=== PATIENT | female | born 1935 | race Caucasian/White ===

== ENCOUNTER 2016-11-02 11:10 | Inpatient (IN) | payer MEDICARE ==
--- NOTE | ~2016-11-02 | EGD ---
EGD REPORT [facility] [address] [address] NAME: GISELL SAENZ : 39 STATUS : ADM IN PAT#: [id number] AGE: 81 ADM/REG DATE : 11/02/16 MR#: [id number] REPORT SERV DATE: 11/03/16 DICTATED BY: JACKSON MCCRAY DATE: 11/03/16 REPORT STATUS : Draft TRANSCRIBED BY: [facility] DATE: 11/03/16 Endoscopy Center Patient Name: Gisell Saenz Date of : 1935 Attending MD: JACKSON MCCRAY MD Procedure Date No Time: 11/03/2016 Procedure: Upper GI endoscopy Indications: Hematochezia, Melena Referring MD: CRISTIANA CRAIN Medicines: Monitored Anesthesia Care Complications: No immediate complications. Estimated blood loss: None. Procedure: Pre-Anesthesia Assessment: - ASA Grade Assessment: III - A patient with severe systemic disease. After obtaining informed consent, the endoscope was passed under direct vision. Throughout the procedure, the patient's blood pressure, pulse, and oxygen saturations were monitored continuously. The GIF [id number] was introduced through the mouth, and advanced to the second part of duodenum. The upper GI endoscopy was accomplished without difficulty. The patient tolerated the procedure well. Findings: The examined esophagus was normal. The stomach was normal. The examined duodenum was normal. The cardia and gastric fundus were normal on retroflexion. Impression: - Normal examination with no suggestion of GI bleeding. Recommendation: - Perform a colonoscopy today. Procedure Code(s): --- Professional --- 29798, Esophagogastroduodenoscopy, flexible, transoral; diagnostic, including collection of specimen(s) by brushing or washing, when performed (separate procedure) Diagnosis Code(s): --- Professional --- K92.1, Melena CPT copyright 2013 [employer]. All rights reserved. The codes documented in this report are preliminary and upon head filter tank tender helper review may EGD REPORT [facility] [address] [place]. [address] NAME: GISELL SAENZ : [birth year] STATUS : ADM IN [facility]#: [id number] AGE: 81 ADM/REG DATE : 11/02/16 MR#: [id number] REPORT SERV DATE: 11/03/16 DICTATED BY: JACKSON MCCRAY DATE: 11/03/16 REPORT STATUS : Draft TRANSCRIBED BY: [employer] DATE: 11/03/16 be revised to meet current compliance requirements. Jackson Mccray MD JACKSON MCCRAY MD 11/03/2016 7:56 AM This report has been signed electronically. Number of Addenda: 0 Note Initiated On: 11/03/2016 7:13 AM Scope Withdrawal Time 0 hours 0 minutes 0 seconds [address] [place] [address]
--- NOTE | ~2016-11-02 | HP ---
History And Physical [id number] [facility] [place]. [address] NAME: GISELL SAENZ : [birth year] STATUS : ADM IN [facility]#: [id number] AGE: 81 ADM/REG DATE : 11/02/16 MR#: [id number] REPORT SERV DATE: 11/02/16 DICTATED BY: WES BONILLA DATE: 11/02/16 REPORT STATUS : Draft TRANSCRIBED BY: MODLucina DATE: 11/02/16 DATE OF ADMISSION: 11/02/2016 CHIEF COMPLAINT: Bleeding per rectum. HISTORY OF PRESENT ILLNESS: This is a 81-year-old female with medical history of hypertension, who presented to the emergency room with complaints of bright red blood per rectum. The patient reports that she was in her usual state of health until about a week ago when she noticed some black stool. She normally has about three bowel movements a day, but reports that in the last 24 hours, developed some abdominal pain and nausea. She went to the bathroom and had three bloody bowel movements in the last 24 hours. It was noted to be bright red blood. She denies any chronic history of NSAID use; however, the patient takes a Neptali Aspirin 81 mg a day. She denies any recent use of Goody's powders. She denies any weight loss, jaundice, or alcohol use. Of note, the patient reported that five years ago she had an EGD and a colonoscopy performed by Dr. Nails and was noted to have some chronic gastritis with possible ulcers (per verbal report). She denies any history of perforated ulcers. She reports that she is scheduled to have a followup colonoscopy with Dr. Nails this year. The patient denies any bleeding from any other orifices, hematemesis, or hematuria. She endorsed history of associated presyncope, lightheadedness, fatigue, but denies any palpitation. No chest pain, no shortness of breath, and no history of loss of consciousness. On presentation to the emergency room, blood pressure was 138/78, heart rate was 71. CT of the abdomen was obtained that showed acute colitis. The Hospitalist Service was consulted to admit the patient for further management. REVIEW OF SYSTEMS: 12-point review of systems performed, positive findings as per HPI. PAST MEDICAL HISTORY: 1. Hypertension. 2. Coronary artery disease. 3. Mild diastolic dysfunction per echocardiogram done in 2011. PAST SURGICAL HISTORY: 1. History of left heart catheterization six months ago and found to have known occlusive multivessel coronary artery disease. No stent was placed. 2. Hysterectomy. 3. Recent history of root canal therapy with bridging and was placed on amoxicillin prior to this admission. FAMILY HISTORY: Denies family history of colon cancer. Reports history of hypertension. History And Physical [address] [address] NAME: GISELL SAENZ : 39 STATUS : ADM IN [facility]#: [id number] AGE: 81 ADM/REG DATE : 11/02/16 MR#: [id number] REPORT SERV DATE: 11/02/16 DICTATED BY: WES BONILLA DATE: 11/02/16 REPORT STATUS : Draft TRANSCRIBED BY: ATILIO DATE: 11/02/16 SOCIAL HISTORY: Denies drinking alcohol, tobacco use, or illicit drug use. MEDICATIONS: 1. Benazepril and hydrochlorothiazide 20/25 tab one p.o. daily. 2. Doxazosin 2 mg p.o. daily. 3. Omeprazole 20 mg p.o. daily. 4. Atenolol 50 mg p.o. daily. 5. Potassium chloride 10 mEq p.o. daily. 6. Norvasc 2.5 mg p.o. daily. 7. Zolpidem 5 mg p.o. daily. 8. Multivitamins one tab p.o. daily. 9. Aspirin enteric-coated 81 mg p.o. daily. 10.Amoxicillin 500 mg p.o. b.i.d. for seven days. 11.[place] 5/325 one p.o. daily. PHYSICAL EXAMINATION: VITAL SIGNS: Blood pressure 138/78, pulse 71 beats per minute, respiratory rate 18 cycles per minute, saturating 99% on room air. GENERAL: Not in any acute distress. HEENT: Pupils equal, round, and reactive. Extraocular muscle intact. Not pale. Anicteric. Oral mucosa moist. NECK: Supple. No JVD. No thyromegaly. CHEST: Equal expansion, nontender. LUNGS: Clear to auscultation bilaterally. No wheezes, no rhonchi. CARDIOVASCULAR: Regular rate and rhythm. S1 and S2. No murmurs, no rubs, no gallop. ABDOMEN: Bowel sounds normoactive. Mild diffuse tenderness, most severe in the left lower quadrant. No palpably enlarged organomegaly. EXTREMITIES: No pedal edema. NEURO: Oriented x3. Strength 5/5 in all extremities. LABORATORY DATA: CBC: WBC 10.9, hemoglobin 13.9, hematocrit 41.0, platelets 191. INR 1.1, PT 13.3. Lipase 77. Chemistry: Sodium 138, potassium 3.1, chloride 99, bicarb 34, BUN 16, creatinine 1.04, GFR 51, glucose 129, ALT 23, AST 25, alkaline phosphatase 62, total bilirubin 1.0. CT abdomen and pelvis, impression: 1. Nonspecific acute colitis in the mid transverse colon through the descending colon with sparing of the rectosigmoid. 2. Mild rights-sided pelvocaliectasis, potentially due to mild UPJ obstruction based on the course of the proximal right ureter. 3. Small hiatal hernia. 4. Sigmoid and left-sided colonic diverticulosis without diverticulitis. ASSESSMENT AND PLAN: 1. GI bleed, likely due to diverticulosis. There is also a possibility of ongoing upper GI bleed in this patient, who has a week of melena prior to presentation. 2. Hypokalemia. History And Physical [address] [address] NAME: GISELL SAENZ : 39 STATUS : ADM IN [facility]#: [id number] AGE: 81 ADM/REG DATE : 11/02/16 MR#: [id number] REPORT SERV DATE: 11/02/16 DICTATED BY: WES BONILLA DATE: 11/02/16 REPORT STATUS : Draft TRANSCRIBED BY: ATILIO DATE: 11/02/16 3. Acute colitis. 4. Hypertension. PLAN: 1. Acute GI bleed: I will keep the patient n.p.o. at this time. We will start the patient on IV Flagyl and IV levofloxacin. We will group and cross-match two units of packed red blood cells. We will monitor the patient's H and H. We will check serial H and H. We will transfuse one unit of packed RBC if hemoglobin less than 7 and hematocrit less than 21. I will obtain vitals q.4 hours. We will continue IV Protonix at this time. I will consult the patient's primary bakery decorator, Dr. Nails for further recommendation. 2. Hypokalemia: We will replete the patient's potassium. 3. Acute colitis: We will continue IV Flagyl and levofloxacin at this time. We will continue to monitor closely. We will continue some IV fluid resuscitation as well. 4. Hypertension: We will hold off the patient's home blood pressure medication at this time and reinstitute as BP tolerates. 5. Code status: Full code. 6. Consultation: GI. 7. Admission disposition: Cardiac tele. 8. Admission status: Inpatient. 9. Deep vein thrombosis prophylaxis: Contraindicated. IOO/MODL Wes Bonilla MD / [id number] CC: MD Leo Valencia MD
--- NOTE | ~2016-11-02 | CN ---
Consultation Report [address] [place]. [address] NAME: GISELL SAENZ : 39 STATUS : ADM IN PAT#: [id number] AGE: 81 ADM/REG DATE : 11/02/16 MR#: [id number] REPORT SERV DATE: 11/02/16 DICTATED BY: DELLA NAILS DATE: 11/02/16 REPORT STATUS : Draft TRANSCRIBED BY: MODL DATE: 11/02/16 CONSULTATION DATE OF CONSULTATION: 11/02/2016 HISTORY OF PRESENT ILLNESS: Gisell Saenz is a 81-year-old female patient, well known to me, whom I was asked to evaluate regarding GI bleed. I saw this patient for a screening colonoscopy and an EGD for dysphagia in 12/2011. She had diverticular disease and hemorrhoids. She had a small hiatal hernia. The patient stated that she began to experience some dark stools consistent with melena for about the last week. Yesterday, she had some lower abdominal pain and then experienced some bright red blood per rectum that brought her to the emergency room. A CT scan in the emergency room shows colitis in the transverse colon, descending colon, diverticular disease, and a hiatal hernia. The patient underwent oral surgery on Thursday and had some vomiting on . She denies use of any nonsteroidal antiinflammatory drugs. She is on amoxicillin currently because of the oral surgery. She does have a history gastroesophageal reflux disease, for which she takes omeprazole. She denies any chest pain or dyspnea. PAST MEDICAL HISTORY: 1. Hypertension. 2. Coronary artery disease. 3. GERD. PAST SURGICAL HISTORY: 1. Left heart catheterization six months ago, requiring no stent but showing some coronary artery disease. 2. Hysterectomy. 3. History of oral surgery this past week. FAMILY HISTORY: No history of colon cancer or polyps. SOCIAL HISTORY: She is . Her is in the room. She does not smoke or drink. OUTPATIENT MEDICATIONS: See list. Of note, she is on omeprazole 20 mg daily and takes aspirin once per day. REVIEW OF SYSTEMS: All system reviewed, negative except for that noted in the history of present illness. PHYSICAL EXAMINATION: Consultation Report [address] [place]. [address] NAME: GISELL SAENZ : 39 STATUS : ADM IN PAT#: [id number] AGE: 81 ADM/REG DATE : 11/02/16 MR#: [id number] REPORT SERV DATE: 11/02/16 DICTATED BY: DELLA NAILS DATE: 11/02/16 REPORT STATUS : Draft TRANSCRIBED BY: ATILIO DATE: 11/02/16 GENERAL: She is oriented x4, in no acute distress. She is afebrile. VITAL SIGNS: Stable. LUNGS: Clear. CARDIOVASCULAR: Revealed no S3, S4, or murmurs. ABDOMEN: Revealed active bowel sounds. Soft. Some mild lower abdominal tenderness. LABORATORY DATA: CMP: Normal except potassium 3.1, glucose 129, white blood cell count 10,900, hemoglobin 12.9, platelet count 91,000. On admission, her hemoglobin was 13.9. IMPRESSION: 1. Melena. 2. Lower abdominal pain. 3. Hematochezia. 4. Colitis. Most of her symptoms in view of the CT scan are consistent with colitis, probably ischemic colitis, though infectious could not be ruled out. I doubt this is diverticulitis. I cannot explain the melena. She could have ulcer in her stomach or elsewhere in the more proximal GI tract. RECOMMENDATIONS: 1. EGD and colonoscopy tomorrow by Dr. Dumas. 2. Serial H and H. 3. Agree with PPI drip. 4. Agree with antibiotics for now. Thanks for allowing us to assist in her care. KYLE/ATILIO Della Nails M.D. / [id number] CC: MD Leo Valencia MD
--- NOTE | ~2016-11-02 | EGD ---
EGD REPORT [facility] [address] [address] NAME: GISELL SAENZ : 39 STATUS : ADM IN PAT#: [id number] AGE: 81 ADM/REG DATE : 11/02/16 MR#: [id number] REPORT SERV DATE: 11/03/16 DICTATED BY: JACKSON MCCRAY DATE: 11/03/16 REPORT STATUS : Draft TRANSCRIBED BY: [facility] DATE: 11/03/16 Endoscopy Center Patient Name: Gisell Saenz Date of : 1935 Attending MD: JACKSON MCCRAY MD Procedure Date No Time: 11/03/2016 Procedure: Colonoscopy Indications: Hematochezia Referring MD: CRISTIANA CRAIN Medicines: Monitored Anesthesia Care Complications: No immediate complications. Estimated blood loss: Minimal. Procedure: Pre-Anesthesia Assessment: - ASA Grade Assessment: III - A patient with severe systemic disease. After I obtained informed consent, the scope was passed under direct vision. Throughout the procedure, the patient's blood pressure, pulse, and oxygen saturations were monitored continuously. The CF [id number] was introduced through the anus and advanced to the terminal ileum, with identification of the appendiceal orifice and IC valve. The colonoscopy was performed without difficulty. The patient tolerated the procedure well. The quality of the bowel preparation was excellent. Findings: The perianal and digital rectal examinations were normal. Pertinent negatives include no palpable rectal lesions. Patchy mild inflammation characterized by congestion (edema), erosions and erythema was found from 40 to 50 cm proximal to the anus. Biopsies were taken with a cold forceps for histology. Estimated blood loss was minimal. Multiple medium-mouthed diverticula were found in the sigmoid colon. The exam was otherwise without abnormality on direct and retroflexion views. Impression: - Patchy mild inflammation was found from 40 to 50 cm proximal to the anus secondary to colitis. Biopsied. - Diverticulosis in the sigmoid colon. - The examination was otherwise normal on direct and retroflexion views. Recommendation: - Return patient to hospital [facility] for ongoing care. - Clear liquid diet and then advance diet as tolerated by symptoms. EGD REPORT [address] [address] NAME: GISELL SAENZ : 39 STATUS : ADM IN [facility]#: [id number] AGE: 81 ADM/REG DATE : 11/02/16 MR#: [id number] REPORT SERV DATE: 11/03/16 DICTATED BY: JACKSON MCCRAY DATE: 11/03/16 REPORT STATUS : Draft TRANSCRIBED BY: [employer] DATE: 11/03/16 - Await pathology results. - Use broad spectrum antibiotics for 7 days. - Return to GI clinic in 2 weeks. Procedure Code(s): --- Professional --- 24246, Colonoscopy, flexible, proximal to splenic flexure; with biopsy, single or multiple Diagnosis Code(s): --- Professional --- K52.9, Noninfective gastroenteritis and colitis, unspecified K57.30, Diverticulosis of large intestine without perforation or abscess without bleeding K92.1, Melena CPT copyright 2013 [employer]. All rights reserved. The codes documented in this report are preliminary and upon jingle writer review may be revised to meet current compliance requirements. Jackson Mccray MD JACKSON MCCRAY MD 11/03/2016 8:24 AM This report has been signed electronically. Number of Addenda: 0 Note Initiated On: 11/03/2016 7:12 AM Scope Withdrawal Time 0 hours 9 minutes 45 seconds [address] [id number]
--- NOTE | ~2016-11-02 | DS ---
Discharge Summary [address] [place]. [address] NAME: GISELL SAENZ : 39 STATUS : DIS IN PAT#: [id number] AGE: 81 ADM/REG DATE : 11/02/16 MR#: [id number] REPORT SERV DATE: 11/04/16 DICTATED BY: WES BONILLA DATE: 11/03/16 REPORT STATUS : Draft TRANSCRIBED BY: MODL DATE: 11/03/16 ADMISSION DATE: 11/02/2016 DISCHARGE DATE: 11/03/2016 DISCHARGE DIAGNOSES: 1. Acute colitis. 2. Hematochezia. 3. Diverticulosis. 4. Hypertension. 5. Hypokalemia. DISCHARGE CONDITION: Stable. IMAGIN. CT of the abdomen, impression:. a. Nonspecific acute colitis in the midtransverse colon through the descending colon with sparing of the rectosigmoid. b. Mild right-sided pelvocaliectasis potentially due to mild UPJ obstruction based on the course of the proximal right ureter. c. Small hiatal hernia. d. Sigmoid and left-sided colonic diverticulosis without diverticulitis. 2. Colonoscopy. Findings, impression:. a. Patchy mild inflammation was found from 40 to 50 cm proximal to the anus secondary to colitis. Biopsied. Diverticulosis in the sigmoid colon noted. b. The rest of the exam was otherwise normal. 3. EGD report. Impression, normal examination with no suggestion of GI bleed. CONSULTATION: Gastroenterology by Dr. Jackson Dumas. HISTORY OF PRESENT ILLNESS: For detailed HPI, make reference to Dr. Wes Bonilla's dictation on 11/02/2016. In brief, this is a 81-year-old female, who presented to the hospital with complaints of melena of one week duration and bright red blood per rectum of 24 hours duration. In the ER, had a CT scan of the abdomen that showed acute colitis. The patient was admitted to the Hospitalist Service. HOSPITAL COURSE: 1. Acute GI bleed. The patient was made n.p.o., placed on Protonix drip. Gastroenterology was consulted. Recommended an EGD and colonoscopy. EGD showed normal examination. Colonoscopy showed the presence of colitis. No source of bleeding identified. The patient was transferred back to the medical floor. Diet was advanced from n.p.o. to clear liquids, from clear liquids to regular diet, and tolerated it without any complication. 2. Acute colitis. The patient was started on IV Flagyl and levofloxacin at the time of admission, which was subsequently transitioned to p.o. Flagyl and levofloxacin prior to discharge. The patient tolerated regular diet without any abdominal discomfort, nausea, or vomiting. The patient was advised to complete a total seven days antibiotic Discharge Summary [address] [address] NAME: GISELL SAENZ : 39 STATUS : DIS IN PAT#: [id number] AGE: 81 ADM/REG DATE : 11/02/16 MR#: [id number] REPORT SERV DATE: 11/04/16 DICTATED BY: WES BONILLA DATE: 11/03/16 REPORT STATUS : Draft TRANSCRIBED BY: ATILIO DATE: 11/03/16 therapy and follow up with gastroenterology as an outpatient. DISCHARGE CONDITION: Stable. DISCHARGE MEDICATIONS: 1. Amlodipine 2.5 mg p.o. daily. 2. Atenolol 50 mg p.o. daily. 3. Levofloxacin 750 mg p.o. daily. 4. Flagyl 500 mg p.o. t.i.d. 5. . 6. Aspirin 81 mg p.o. daily. DISCHARGE FOLLOWUP: Follow up with Gastroenterology. Greater than 35 minutes was used to prepare this patient's discharge, reconcile medication, and advise the patient on discharge plans and followup. DICTATED BY: MD GEOFFREY Valencia/ATILIO Wes Bonilla MD / [id number] CC: MD Leo Valencia MD
[2016-11-02 10:35] LABS: BASOPHILS 0.2 %; BASOPHILS ABSOLUTE 0.02 10/3/uL (0.0-0.16); EOSINOPHILS 0.2 %; EOSINOPHILS ABSOLUTE 0.02 10/3/uL (0.0-0.53); HEMOGLOBIN 13.9 g/dL (12.0-16.0); IMMATURE GRANULOCYTES 0.2 %; IMMATURE GRANULOCYTES ABSOLUTE 0.02 10/3/uL (0.0-0.11); LYMPHOCYTES 14.3 %; LYMPHOCYTES ABSOLUTE 1.56 10/3/uL (0.67-4.30); MEAN CORPUS HGB CONC 33.9 g/dL (32.0-36.0); MEAN CORPUSCULAR HEMOGLOB 30.9 pg (26.0-34.0); MEAN CORPUSCULAR VOLUME 91.1 fL (80-100); MEAN PLATELET VOLUME 9.6 fL (9.2-13.0); MONOCYTES 9.2 %; NEUTROPHILS 75.9 %; NEUTROPHILS ABSOLUTE 8.28 10/3/uL (2.02-8.40); PLATELET COUNT 191 10/3/uL (150-400); RBC DISTRIBUTION WIDTH 12.7 % (12.0-16.0)
[2016-11-02 10:37] LABS: ER CBC TAT 0 Hrs 05 Mins; MANUAL DIFF NO %; WHITE BLOOD CELLS 10.9 10/3/uL (4.5-10.5)
[2016-11-02 10:44] LABS: INTERNATIONAL NORMAL RATI 1.1 UNITS (-); PARTIAL THROMBO TIME 27.5 SEC (22.5-37.2); PROTIME (NOT ORD) 13.8 SEC (12.0-14.5)
[2016-11-02 10:56] LABS: A/G RATIO 1.1 (0.7-1.9); ALBUMIN 3.6 G/DL (3.5-5.0); CALCIUM, SERUM 8.9 MG/DL (8.5-10.4); CHLORIDE, SERUM 99 MMOL/L (96-112); CO2 (CARBON DIOXIDE) 34 MMOL/L (24-34); CREATININE 1.04 MG/DL (0.55-1.02); GFR AFRICAN AMERICAN 59 ML/MIN (>=60); GFR NON AFRICAN AMERICAN 51 ML/MIN (>=60); GLOBULIN 3.4 G/DL (2.5-4.1); POTASSIUM, SERUM 3.1 MMOL/L (3.5-5.3); SGOT(AST) 25 U/L (5-40); SGPT(ALT) 23 U/L (5-65); SODIUM, SERUM 138 MMOL/L (135-148)
[2016-11-02 10:57] LABS: ALKALINE PHOSPHATASE 62 U/L (45-117); BUN (BLOOD UREA NITROGEN) 16 MG/DL (6-23); GLUCOSE, SERUM 129 MG/DL (60-99)
[~2016-11-02 11:10] MED LIST: AMB5 PO; ASAB PO; ATEN50 PO; CALTRA600D PO; CALTRAT600 PO; CARDU4 PO; CENTRUM PO; CENTRUM TAB1 TAB PO; HALF81 PO; HCTZ25B PO; KDUR10 PO; KLOR-CON M2020 MEQ PO; LIDODERM T; LOTENSIN HCT1 TA3 PO; LYRICA75 PO; MIRALAXPKT PO; MOBIC7.5 PO; NORCO1 TA1 PO; NORV25 PO; PRILO PO
[2016-11-02] MEDS ORDERED: ATEN50 PO (11:18)
[2016-11-02] MEDS ORDERED: PRILO PO (11:18)
[2016-11-02] MEDS ORDERED: LOTENSIN HCT1 TA3 PO (11:18)
[2016-11-02] MEDS ORDERED: CARDU2 PO (11:18)
[2016-11-02] MEDS ORDERED: MULTIVITAMI1 PO (11:19)
[2016-11-02] MEDS ORDERED: NORV25 PO (11:19)
[2016-11-02] MEDS ORDERED: AMB5 PO (11:19)
[2016-11-02] MEDS ORDERED: K-TABS10 MEQ PO (11:19)
[2016-11-02] MEDS ORDERED: AMOXIL500 MG PO (11:20)
[2016-11-02] MEDS ORDERED: NORCO1 TA1 PO (11:20)
[2016-11-02] MEDS ORDERED: HALF81 PO (11:20)
[2016-11-02 15:31] LABS: FREE T4 1.15 NG/DL (0.76-1.46)
[2016-11-02 15:47] LABS: HEMOGLOBIN 12.9 g/dL (12.0-16.0)
[2016-11-02 23:38] LABS: HEMATOCRIT 39.9 % (36.0-48.0); HEMOGLOBIN 13.3 g/dL (12.0-16.0)
[2016-11-03 04:37] LABS: BASOPHILS 0.2 %; BASOPHILS ABSOLUTE 0.02 10/3/uL (0.0-0.16); EOSINOPHILS 0.3 %; EOSINOPHILS ABSOLUTE 0.03 10/3/uL (0.0-0.53); HEMATOCRIT 36.2 % (36.0-48.0); HEMOGLOBIN 11.9 g/dL (12.0-16.0); IMMATURE GRANULOCYTES 0.3 %; IMMATURE GRANULOCYTES ABSOLUTE 0.03 10/3/uL (0.0-0.11); LYMPHOCYTES 19.2 %; LYMPHOCYTES ABSOLUTE 2.01 10/3/uL (0.67-4.30); MEAN CORPUS HGB CONC 32.9 g/dL (32.0-36.0); MEAN CORPUSCULAR HEMOGLOB 30.6 pg (26.0-34.0); MEAN CORPUSCULAR VOLUME 93.1 fL (80-100); MEAN PLATELET VOLUME 9.9 fL (9.2-13.0); MONOCYTES 9.4 %; MONOCYTES ABSOLUTE 0.98 10/3/uL (0.21-1.20); NEUTROPHILS 70.6 %; NEUTROPHILS ABSOLUTE 7.39 10/3/uL (2.02-8.40); PLATELET COUNT 170 10/3/uL (150-400); RBC DISTRIBUTION WIDTH 12.9 % (12.0-16.0); RED CELL COUNT 3.89 10/6/uL (4.0-5.6); WHITE BLOOD CELLS 10.5 10/3/uL (4.5-10.5)
[2016-11-03 04:53] LABS: MANUAL DIFF NO %
[2016-11-03 05:07] LABS: ALBUMIN 2.8 G/DL (3.5-5.0); ALKALINE PHOSPHATASE 48 U/L (45-117); BUN (BLOOD UREA NITROGEN) 16 MG/DL (6-23); CALCIUM, SERUM 8.2 MG/DL (8.5-10.4); CHLORIDE, SERUM 106 MMOL/L (96-112); CO2 (CARBON DIOXIDE) 27 MMOL/L (24-34); CREATININE 0.79 MG/DL (0.55-1.02); GFR AFRICAN AMERICAN 83 ML/MIN (>=60); GFR NON AFRICAN AMERICAN 71 ML/MIN (>=60); GLOBULIN 2.7 G/DL (2.5-4.1); GLUCOSE, SERUM 105 MG/DL (60-99); POTASSIUM, SERUM 3.3 MMOL/L (3.5-5.3); SGOT(AST) 21 U/L (5-40); SGPT(ALT) 19 U/L (5-65); SODIUM, SERUM 141 MMOL/L (135-148); TOTAL BILIRUBIN 0.8 MG/DL (0-1.2); TOTAL PROTEIN 5.5 G/DL (6.0-8.5)
[2016-11-03 10:14] LABS: HEMATOCRIT 35.7 % (36.0-48.0); HEMOGLOBIN 11.9 g/dL (12.0-16.0)
[2016-11-03] MEDS ORDERED: LEVAQUIN750 MG PO (16:29)
[2016-11-03] MEDS ORDERED: FLAG500TAB PO (16:30)
== END 2016-11-03 18:07 | disposition home or self-care (01) | DRG 392 ==
LOC: ER 11:10 → 7NO 13:35
PROVIDERS: Emergency Medicine; Hospitalist; Internal Medicine Gastroenterology
PROC: 0DJ08ZZ Inspection of Upper Intestinal Tract, Via Natural or Artificial Opening Endoscopic (ICD-10-PCS; principal; 2016-11-03 07:45)
PROC: 0DBQ8ZX Excision of Anus, Via Natural or Artificial Opening Endoscopic, Diagnostic (ICD-10-PCS; 2016-11-03 07:45)
DX: K52.89 Other specified noninfective gastroenteritis and colitis (principal); I10 Essential (primary) hypertension; K57.30 Diverticulosis of large intestine without perforation or abscess without bleeding; E87.6 Hypokalemia; K44.9 Diaphragmatic hernia without obstruction or gangrene; K21.9 Gastro-esophageal reflux disease without esophagitis; I25.10 Atherosclerotic heart disease of native coronary artery without angina pectoris
CPT/HCPCS: 36415; 36430; 71010; 74176; 80053; 83690; 84439; 84443; 85014; 85018; 85025; 85610; 85730; 86850; 86900; 86901; 86920; 87040; 88305; 93005; 96365; 96368; 96375; 97161-GP; 99285; A9270-GY; C9113; J1956; J2405